=== PATIENT | female | born 1990 | race Caucasian/White ===

== ENCOUNTER 2019-11-30 15:55 | Outpatient (CLI) | payer MEDICAID ==
[~2019-11-30] VITALS: Ht 177.8 cm; Wt 93.0 kg
[2019-11-30 16:18] LABS: BASOPHILS # (AUTO) 0.03 x10^3/uL (0-0.1); BASOPHILS % (AUTO) 0 % (0-1); EOSINOPHILS # (AUTO) 0.06 x10^3/uL (0-0.4); EOSINOPHILS % (AUTO) 1 % (1-7); LYMPHOCYTES # (AUTO) 2.12 x10^3/uL (1-3.4); LYMPHOCYTES % (AUTO) 18 % (22-44); MD NO; MEAN CORPUSCULAR HEMOGLOBIN 32.5 pg (27.0-34.8); MEAN CORPUSCULAR HGB CONC 33.1 g/dL (32.4-35.8); MEAN CORPUSCULAR VOLUME 98.3 fL (80-100); MEAN PLATELET VOLUME 9.3 fL (7.4-10.4); MONOCYTES % (AUTO) 10 % (2-9); NEUTROPHILS # (AUTO) 8.39 x10^3/uL (1.8-6.8); NEUTROPHILS % (AUTO) 71 % (42-75); PLATELET COUNT 302 x10^3/uL (130-400); RED BLOOD COUNT 3.92 x10^6/uL (3.82-5.3); RED CELL DISTRIBUTION WIDTH 13.3 % (9.6-15.2)
[2019-11-30 16:24] VITALS: BP 122/86
[2019-11-30 16:29] LABS: ALBUMIN 2.7 g/dL (3.4-5.0); ANION GAP 9 mmol/L (5-15); CALCIUM 8.6 mg/dL (8.5-10.1); CHLORIDE 108 mmol/L (98-107)
[2019-11-30 16:29] LABS: MICROSCOPIC NOT IND
[2019-11-30 16:30] LABS: BILIRUBIN, DIRECT < 0.1 mg/dL (0.1-0.2)
[2019-11-30 16:32] LABS: ALANINE AMINOTRANSFERASE 17 U/L (12-78); ALKALINE PHOSPHATASE 147 U/L (45-117); BILIRUBIN,TOTAL 0.4 mg/dL (0.2-1.0); CREATININE 0.56 mg/dL (0.55-1.02); TOTAL PROTEIN 6.5 g/dL (6.4-8.2)
[2019-11-30] MEDS ORDERED: DIPHENHYDRAMINE 25 MG CAPSULE PO PRN (17:00)
[2019-11-30] MEDS ORDERED: PLEASE ENTER ALLERGIES MC SCH (17:00)
[2019-11-30] MEDS ORDERED: PREN1TAB60 PO (17:03)
[2019-11-30] MEDS ORDERED: ASPI-515 PO (17:04)
[2019-11-30] MEDS ORDERED: FOLI-17 PO (17:05)
[2019-11-30 17:43] LABS: AMPHETAMINE SCREEN, URINE Negative (Negative); BARBITURATE SCREEN, URINE Negative (Negative); BENZODIAZEPINE SCREEN, URINE Negative (Negative); CANNABINOID SCREEN, URINE Positive (Negative); COCAINE SCREEN, URINE Negative (Negative); METHADONE SCREEN, URINE Negative (Negative); OPIATE SCREEN, URINE Negative (Negative)
[2019-12-01] MEDS ORDERED: PRENATAL VIT/IRON/FA 1 EACH TABLET PO SCH (09:00)
[2019-12-01] MEDS ORDERED: ASPIRIN 81 MG TABLET CHEW PO SCH (09:00)
[2019-12-01] MEDS ORDERED: FOLIC ACID 1 MG TABLET PO SCH (09:00)
== END 2019-11-30 17:28 | disposition home or self-care (01) ==
LOC: LDOP 15:55
PROVIDERS: ATTEND Obstetrics & Gynecology
DX: O16.3 Unspecified maternal hypertension, third trimester (principal); Z3A.36 36 weeks gestation of pregnancy
CPT/HCPCS: 36415; 59025; 80053; 80307; 81003; 82248; 82570; 83615; 84156; 84550; 85025; 99201; G0463

== ENCOUNTER 2019-12-02 10:35 | Outpatient (CLI) | payer MEDICAID ==
[~2019-12-02] VITALS: Ht 177.8 cm; Wt 93.6 kg
[~2019-12-02 10:35] MED LIST: ASPI-515 PO; FOLI-17 PO; PREN1TAB60 PO
[2019-12-02 11:06] VITALS: BP 137/94
[2019-12-02] MEDS ORDERED: TERBUTALINE 1 MG/ML, 1ML ONE (11:32)
[2019-12-02] MEDS ORDERED: TERBUTALINE 1 MG/ML, 1ML SQ ONE (12:00)
[2019-12-02 12:03] LABS: MICROSCOPIC NOT IND
[2019-12-02] MEDS ORDERED: ACET-1600 PO (13:23)
== END 2019-12-02 13:28 | disposition home or self-care (01) ==
LOC: LDOP 10:35
PROVIDERS: ATTEND Obstetrics & Gynecology
DX: O26.893 Other specified pregnancy related conditions, third trimester (principal); R10.9 Unspecified abdominal pain; O13.3 Gestational [pregnancy-induced] hypertension without significant proteinuria, third trimester; Z3A.36 36 weeks gestation of pregnancy
CPT/HCPCS: 59025; 81003; 87086; 96372; 99211; J3105; G0463

== ENCOUNTER 2019-12-04 01:38 | Observation (INO) | payer MEDICAID ==
[~2019-12-04] VITALS: Ht 177.8 cm; Wt 93.6 kg
[~2019-12-04 01:38] MED LIST changes: +ACET-1600 PO
[2019-12-04] MEDS ORDERED: MORPHINE SULFATE 4 MG/ML, 1ML ONE (02:20)
[2019-12-04] MEDS ORDERED: BETAMETHASONE 6 MG/ML, 5ML IM ONE (02:24)
[2019-12-04 02:30] VITALS: BP 135/85
[2019-12-04] MEDS ORDERED: LACTATED RINGERS 1,000 ML IV SCH (02:30)
[2019-12-04] MEDS ORDERED: BETAMETHASONE 6 MG/ML, 5ML IM SCH (02:30)
[2019-12-04] MEDS ORDERED: MORPHINE SULFATE 4 MG/ML, 1ML IVPush PRN (02:30)
[2019-12-04 02:31] LABS: MICROSCOPIC INDICATED
[2019-12-04 02:53] LABS: AMPHETAMINE SCREEN, URINE Negative (Negative); BARBITURATE SCREEN, URINE Negative (Negative); BENZODIAZEPINE SCREEN, URINE Negative (Negative); CANNABINOID SCREEN, URINE Positive (Negative); COCAINE SCREEN, URINE Negative (Negative); METHADONE SCREEN, URINE Negative (Negative); OPIATE SCREEN, URINE Negative (Negative)
[2019-12-04 02:54] LABS: MEAN CORPUSCULAR HEMOGLOBIN 32.8 pg (27.0-34.8); MEAN CORPUSCULAR HGB CONC 33.6 g/dL (32.4-35.8); MEAN CORPUSCULAR VOLUME 97.5 fL (80-100); MEAN PLATELET VOLUME 9.7 fL (7.4-10.4); PLATELET COUNT 208 x10^3/uL (130-400); RED BLOOD COUNT 3.57 x10^6/uL (3.82-5.3)
[2019-12-04 03:10] LABS: BASOPHILS # (AUTO) 0.03 x10^3/uL (0-0.1); BASOPHILS % (AUTO) 0 % (0-1); EOSINOPHILS # (AUTO) 0.08 x10^3/uL (0-0.4); EOSINOPHILS % (AUTO) 1 % (1-7); LYMPHOCYTES # (AUTO) 1.42 x10^3/uL (1-3.4); LYMPHOCYTES % (AUTO) 11 % (22-44); MD SCAN; MONOCYTES # (AUTO) 1.58 x10^3/uL (0.2-0.8); MONOCYTES % (AUTO) 12 % (2-9); NEUTROPHILS # (AUTO) 10.26 x10^3/uL (1.8-6.8); NEUTROPHILS % (AUTO) 77 % (42-75)
[2019-12-04] MEDS ORDERED: TERBUTALINE 1 MG/ML, 1ML ONE (08:00)
[2019-12-04] MEDS ORDERED: TERBUTALINE 1 MG/ML, 1ML IV ONE (08:00)
[2019-12-04] MEDS ORDERED: PROMETHAZINE 25 MG/ML, 1ML IM ONE (10:00)
[2019-12-04] MEDS ORDERED: MEPERIDINE/PF 100 MG/ML ONE (10:12)
[2019-12-04] MEDS ORDERED: MEPERIDINE/PF 50 MG/ML IM PRN (10:30)
== END 2019-12-04 10:26 | disposition home or self-care (01) ==
LOC: LDOP 01:38 → LDIP 03:29
PROVIDERS: ADMIT Obstetrics & Gynecology; ATTEND Obstetrics & Gynecology
DX: O62.9 Abnormality of forces of labor, unspecified (principal); O34.219 Maternal care for unspecified type scar from previous cesarean delivery; O99.513 Diseases of the respiratory system complicating pregnancy, third trimester; J45.909 Unspecified asthma, uncomplicated; Z87.891 Personal history of nicotine dependence; Z3A.36 36 weeks gestation of pregnancy; Z79.899 Other long term (current) drug therapy
CPT/HCPCS: 36415; 59025; 80307; 81001; 85025; 86850; 86900; 87086; 96361; 96372; 96374; 96375; 99211; G0378; J0702; J2175; J2270; J2550; J3105; J7120; G0463

== ENCOUNTER 2019-12-05 10:15 | Inpatient (IN) | payer MEDICAID ==
[~2019-12-05] VITALS: Ht 177.8 cm; Wt 93.6 kg
[2019-12-05 10:39] VITALS: BP 127/86
[2019-12-05 10:51] LABS: AMPHETAMINE SCREEN, URINE Negative (Negative); BARBITURATE SCREEN, URINE Negative (Negative); BENZODIAZEPINE SCREEN, URINE Negative (Negative); CANNABINOID SCREEN, URINE Positive (Negative); COCAINE SCREEN, URINE Negative (Negative); METHADONE SCREEN, URINE Negative (Negative); OPIATE SCREEN, URINE Positive (Negative)
[2019-12-05] MEDS ORDERED: METOCLOPRAMIDE 5 MG/ML, 2ML ONE (10:55)
[2019-12-05] MEDS ORDERED: NEWBORN KIT ONE (10:55)
[2019-12-05] MEDS ORDERED: OXYTOCIN 30U/ 0.9% NaCL 500ML 500 ML ONE (10:55)
[2019-12-05] MEDS ORDERED: SODIUM CITRATE/CITRIC ACID 30 ML UDC ONE (10:57)
[2019-12-05] MEDS ORDERED: LACTATED RINGERS 1,000 ML IV SCH (10:57)
[2019-12-05] MEDS ORDERED: SODIUM CITRATE/CITRIC ACID 30 ML UDC PO ONE (11:00)
[2019-12-05] MEDS ORDERED: METOCLOPRAMIDE 5 MG/ML, 2ML IV ONE (11:00)
[2019-12-05] MEDS ORDERED: LACTATED RINGERS 1,000 ML IVBOLUS ONE (11:00)
[2019-12-05 11:23] LABS: BASOPHILS # (AUTO) 0.03 x10^3/uL (0-0.1); BASOPHILS % (AUTO) 0 % (0-1); EOSINOPHILS # (AUTO) 0.03 x10^3/uL (0-0.4); EOSINOPHILS % (AUTO) 0 % (1-7); LYMPHOCYTES # (AUTO) 1.75 x10^3/uL (1-3.4); LYMPHOCYTES % (AUTO) 15 % (22-44); MD NO; MEAN CORPUSCULAR HEMOGLOBIN 32.6 pg (27.0-34.8); MEAN CORPUSCULAR HGB CONC 33.2 g/dL (32.4-35.8); MEAN CORPUSCULAR VOLUME 98.1 fL (80-100); MEAN PLATELET VOLUME 10.1 fL (7.4-10.4); MONOCYTES % (AUTO) 11 % (2-9); NEUTROPHILS # (AUTO) 8.93 x10^3/uL (1.8-6.8); NEUTROPHILS % (AUTO) 74 % (42-75); PLATELET COUNT 226 x10^3/uL (130-400); RED BLOOD COUNT 3.64 x10^6/uL (3.82-5.3); RED CELL DISTRIBUTION WIDTH 13.3 % (9.6-15.2)
[2019-12-05] MEDS: IBUPROFEN 600 MG TABLET PO SCH ×2 (13:30→19:30)
[2019-12-05] MEDS ORDERED: DIPHENHYDRAMINE 50 MG/ML, 1ML IVPush PRN (13:30)
[2019-12-05] MEDS ORDERED: SIMETHICONE 80 MG CHEW TAB PO PRN (13:30)
[2019-12-05] MEDS ORDERED: ONDANSETRON 2MG/ML, 2ML IV PRN ×2 (13:30)
[2019-12-05] MEDS ORDERED: ACETAMINOPHEN 325 MG TABLET PO SCH (13:30)
[2019-12-05] MEDS ORDERED: CALCIUM CARBONATE 500 MG TAB.CHEW PO PRN (13:30)
[2019-12-05] MEDS ORDERED: ACETAMINOPHEN 325 MG TABLET PO PRN (13:30)
[2019-12-05] MEDS ORDERED: FENTANYL PF 100 MCG/2ML IV PRN (13:30)
[2019-12-05] MEDS ORDERED: EPHEDRINE 50 MG/ML, 1ML IM PRN (13:30)
[2019-12-05] MEDS: KETOROLAC 30 MG/1 ML IV SCH ×2 (13:30→19:31)
[2019-12-05] MEDS ORDERED: HYDROmorphone 2 MG/ML, 1ML IVPush PRN (13:30)
[2019-12-05] MEDS ORDERED: morphine SULFATE 10 MG/ML, 1ML IV PRN (13:30)
[2019-12-05] MEDS ORDERED: MISOPROSTOL 200 MCG TABLET PR PRN (13:30)
[2019-12-05] MEDS ORDERED: DEXAMETHASONE 4 MG/ML, 1ML IV PRN (13:30)
[2019-12-05] MEDS ORDERED: ALBUTEROL SULFATE 2.5 MG/3 ML NPPB PRN (13:30)
[2019-12-05] MEDS ORDERED: EPHEDRINE 50 MG/ML, 1ML IVPush PRN (13:30)
[2019-12-05] MEDS ORDERED: MORPHINE SULFATE 4 MG/ML, 1ML IVPush PRN (13:30)
[2019-12-05] MEDS: OXYTOCIN 30U/ 0.9% NaCL 500ML 500 ML IV SCH ×2 (13:41→23:10)
[2019-12-05] MEDS: LACTATED RINGERS 1,000 ML IV SCH ×4 (13:41→23:10)
[2019-12-05] MEDS ORDERED: OXYcodone 5 MG/5 ML ORAL.SOL UDC ONE (14:03)
[2019-12-05] MEDS: OXYcodone 5 MG/5 ML ORAL.SOL UDC PO PRN (14:04)
[2019-12-05 15:30] VITALS: BP 143/90
[2019-12-05 17:00] VITALS: BP 132/81
[2019-12-05 19:40] VITALS: BP 135/82
[2019-12-05 21:24] LABS: BASOPHILS # (AUTO) 0.04 x10^3/uL (0-0.1); BASOPHILS % (AUTO) 0 % (0-1); EOSINOPHILS # (AUTO) 0.03 x10^3/uL (0-0.4); EOSINOPHILS % (AUTO) 0 % (1-7); LYMPHOCYTES # (AUTO) 1.85 x10^3/uL (1-3.4); LYMPHOCYTES % (AUTO) 15 % (22-44); MD NO; MEAN CORPUSCULAR HGB CONC 33.8 g/dL (32.4-35.8); MEAN CORPUSCULAR VOLUME 97.4 fL (80-100); MEAN PLATELET VOLUME 9.8 fL (7.4-10.4); MONOCYTES # (AUTO) 1.19 x10^3/uL (0.2-0.8); MONOCYTES % (AUTO) 9 % (2-9); NEUTROPHILS % (AUTO) 76 % (42-75); PLATELET COUNT 197 x10^3/uL (130-400)
[2019-12-05] MEDS: OXYcodone IR 5MG TABLET PO PRN (21:30)
[2019-12-06] VITALS: BP 123/81
[2019-12-06] MEDS: ACETAMINOPHEN 325 MG TABLET PO PRN ×4 (01:19→23:53)
[2019-12-06] MEDS: KETOROLAC 30 MG/1 ML IV SCH ×2 (01:19→07:54)
[2019-12-06] MEDS: OXYcodone IR 5MG TABLET PO PRN ×5 (01:20→23:53)
[2019-12-06] MEDS: IBUPROFEN 600 MG TABLET PO SCH ×3 (01:30→21:02)
[2019-12-06 03:45] VITALS: BP 116/75
[2019-12-06] MEDS: LACTATED RINGERS 1,000 ML IV SCH ×5 (05:10→21:10)
[2019-12-06] MEDS: DOCUSATE 100 MG CAPSULE PO PRN (07:55)
[2019-12-06] MEDS: PRENATAL VIT/IRON/FA 1 EACH TABLET PO SCH (07:55)
[2019-12-06 08:06] VITALS: BP 131/87
[2019-12-06] MEDS: OXYTOCIN 30U/ 0.9% NaCL 500ML 500 ML IV SCH ×2 (09:10→19:10)
[2019-12-06 20:00] VITALS: BP 112/72
[2019-12-07] MEDS: IBUPROFEN 600 MG TABLET PO SCH ×3 (01:30→12:45)
[2019-12-07] MEDS: OXYTOCIN 30U/ 0.9% NaCL 500ML 500 ML IV SCH (05:10)
[2019-12-07] MEDS: LACTATED RINGERS 1,000 ML IV SCH ×3 (05:10→13:10)
[2019-12-07] MEDS: ACETAMINOPHEN 325 MG TABLET PO PRN (06:17)
[2019-12-07] MEDS: OXYcodone IR 5MG TABLET PO PRN (06:18)
[2019-12-07 07:32] VITALS: BP 127/83
[2019-12-07] MEDS: DOCUSATE 100 MG CAPSULE PO PRN (07:51)
[2019-12-07] MEDS: PRENATAL VIT/IRON/FA 1 EACH TABLET PO SCH (07:51)
[2019-12-07] MEDS ORDERED: IBUP200T49 PO (11:57)
[2019-12-07] MEDS ORDERED: OXYC-302 PO (11:58)
[2019-12-07] MEDS: OXYcodone 5 MG/5 ML ORAL.SOL UDC PO PRN (12:44)
== END 2019-12-07 13:43 | disposition home or self-care (01) | DRG 540 ==
LOC: LDOP 10:15 → LDIP 10:59 → 2NW 15:11
PROVIDERS: ADMIT Obstetrics & Gynecology; ATTEND Obstetrics & Gynecology
PROC: 10D00Z1 Extraction of Products of Conception, Low, Open Approach (ICD-10-PCS; principal; 2019-12-05)
PROC: 0UB70ZZ Excision of Bilateral Fallopian Tubes, Open Approach (ICD-10-PCS; 2019-12-05)
DX: O33.9 Maternal care for disproportion, unspecified (principal); O99.354 Diseases of the nervous system complicating childbirth; O34.211 Maternal care for low transverse scar from previous cesarean delivery; O99.52 Diseases of the respiratory system complicating childbirth; G43.909 Migraine, unspecified, not intractable, without status migrainosus; J45.909 Unspecified asthma, uncomplicated; Z3A.37 37 weeks gestation of pregnancy; Z37.0 Single live birth; Z30.2 Encounter for sterilization; Z82.49 Family history of ischemic heart disease and other diseases of the circulatory system; Z87.891 Personal history of nicotine dependence; Z83.3 Family history of diabetes mellitus; Z64.1 Problems related to multiparity
CPT/HCPCS: 36415; 80307; 85025; 86592; 86850; 86900; 88302; G0378; J0690; J1885; J3010; J2270; J2590; J2765; J7120